=== PATIENT | male | born 1970 | race Hispanic/Latino ===

== ENCOUNTER 2018-12-02 17:00 | Outpatient (RCR) | payer OTHER ==
[~2018-12-02 17:00] MED LIST: PRILOSEC20 MG PO
== END 2018-12-11 ==
LOC: PT 17:00
PROVIDERS: ATTEND Specialist
DX: M24.612 Ankylosis, left shoulder (principal); M62.81 Muscle weakness (generalized); M25.512 Pain in left shoulder; M25.612 Stiffness of left shoulder, not elsewhere classified
CPT/HCPCS: 97139

== ENCOUNTER → 2021-01-16 | Day surgery (SDC) | payer OTHER ==
[~2021-01-16] MED LIST changes: +CRESTOR10 MG PO; +LEVOCETIRIZINE D5 MG PO; +LIDOCAINE HCL 2% LOCAL INJ 5 ML SDV VIAL INJ ONE; +LOSARTAN POTASS25 MG PO; +METFORMIN HCL500 MG PO; +MIDAZOLAM HCL 2 MG/2 ML VIAL ONE; +PROPOFOL IV EMULSION 10 MG/ML 20 ML VIAL ONE; +TRAZODONE HCL50 MG PO; +VITAMIN D3 PO
[2021-01-16 17:18] VITALS: BP 136/74
== END | disposition home or self-care (01) ==
LOC: OR 11:15
PROVIDERS: ATTEND Internal Medicine Gastroenterology
DX: K21.9 Gastro-esophageal reflux disease without esophagitis (principal); D12.0 Benign neoplasm of cecum; D12.4 Benign neoplasm of descending colon; K31.7 Polyp of stomach and duodenum; K85.90 Acute pancreatitis without necrosis or infection, unspecified; K29.70 Gastritis, unspecified, without bleeding; K44.9 Diaphragmatic hernia without obstruction or gangrene; K57.30 Diverticulosis of large intestine without perforation or abscess without bleeding; K64.8 Other hemorrhoids; R19.5 Other fecal abnormalities; E11.9 Type 2 diabetes mellitus without complications; E78.5 Hyperlipidemia, unspecified; F17.200 Nicotine dependence, unspecified, uncomplicated; Z01.810 Encounter for preprocedural cardiovascular examination; Z79.84 Long term (current) use of oral hypoglycemic drugs; Z80.0 Family history of malignant neoplasm of digestive organs
CPT/HCPCS: 36415; 43239; 45385; 82948; 93005; J2001; J2250; J2704; 45378

== ENCOUNTER → 2022-02-12 | Day surgery (SDC) | payer OTHER ==
[~2022-02-12] MED LIST changes: -MIDAZOLAM HCL 2 MG/2 ML VIAL ONE; +POVIDONE IODINE 0.05% 0.05 % ML PO ONE
[2022-02-12 10:05] VITALS: BP 103/78
== END | disposition home or self-care (01) ==
LOC: OR 07:41
PROVIDERS: ATTEND Internal Medicine Gastroenterology
DX: Z12.11 Encounter for screening for malignant neoplasm of colon (principal); K57.30 Diverticulosis of large intestine without perforation or abscess without bleeding; D12.3 Benign neoplasm of transverse colon; D12.7 Benign neoplasm of rectosigmoid junction; K64.8 Other hemorrhoids; K44.9 Diaphragmatic hernia without obstruction or gangrene; K21.9 Gastro-esophageal reflux disease without esophagitis; E11.9 Type 2 diabetes mellitus without complications; E78.5 Hyperlipidemia, unspecified; G47.33 Obstructive sleep apnea (adult) (pediatric); R19.5 Other fecal abnormalities; I10 Essential (primary) hypertension; Z90.49 Acquired absence of other specified parts of digestive tract; Z79.899 Other long term (current) drug therapy; Z79.84 Long term (current) use of oral hypoglycemic drugs; Z01.810 Encounter for preprocedural cardiovascular examination; Z01.812 Encounter for preprocedural laboratory examination
CPT/HCPCS: 0223U; 36415 ×2; 45384; 82948; 93005; J2001